=== PATIENT | female | born 1950 | race Caucasian/White ===

== ENCOUNTER 2016-08-04 08:40 | Day surgery (SDC) | payer OTHER ==
[~2016-08-04 08:40] MED LIST: Lactated Ringers 1,000 ML IV SCH; Lidocaine 1%/Sod Bicarbonate in NS 8.4% 1 ML Syringe IV PRN; Sodium Chloride 0.9% 10 ML Syringe FLUSH PRN
[2016-08-04] MEDS ORDERED: Propofol 200 MG/20 ML SDV ONE (09:44)
[2016-08-04] MEDS ORDERED: Lidocaine 1% 4 ML ONE (09:45)
[2016-08-04] MEDS ORDERED: Rocuronium 50 MG/5 ML Vial ONE (09:53)
[2016-08-04] MEDS ORDERED: Bupivacaine 0.25% 30 ML SDV ONE (09:58)
[2016-08-04] MEDS ORDERED: EPINEPHrine 1:1000 1 MG/ML 30 ML MDV ONE (09:58)
[2016-08-04] MEDS ORDERED: EPINEPHrine 1:1000 1 MG/ML SDV ONE (10:19)
[2016-08-04] MEDS ORDERED: Ropivacaine 0.5% 5 MG/ML 30 ML SDV ONE (10:19)
[2016-08-04] MEDS ORDERED: Midazolam 1 MG/ML 2 ML SDV ONE (10:25)
[2016-08-04] MEDS ORDERED: fentaNYL 100 MCG/2 ML SDV ONE ×2 (10:25→11:43)
--- NOTE | 2016-08-04 10:30 | PCM.PREANE ---
<Nolvia Reynaga - Last Filed: 08/04/16 10:25> Preanesthetic Assessment - Procedure Proposed Procedure: Left should video arthroscopy, rotator cuff repair, subacromial decompression and AIP - Anesthesia/Transfusion/Family Hx Anesthesia History: Prior Anesthesia Reaction Type of Anesthesia Reaction: Excessive Nausea/Vomiting (20 years ago, vomiting 24 hours) Family History of Anesthesia Reaction: No Transfusion History: No Prior Transfusion(s) - Review of Systems General: No Symptoms Pulmonary: No Symptoms - Physical Assessment NPO Status Date: 08/03/16 NPO Status Time: 21:45 O2 Sat by Pulse Oximetry: 96 Respiratory Rate: 16 Vital Signs: Last Vital Signs Temp 36.0 C 08/04/16 08:55 Pulse 69 08/04/16 08:55 Resp 16 08/04/16 10:32 BP 153/89 H 08/04/16 08:55 Pulse Ox 96 08/04/16 10:32 Height: 1.61 m Weight: 64.41 kg - Lab Values: Laboratory Last Values MRSA (PCR) Negative 08/02/16 11:25 - Allergies Allergies/Adverse Reactions: Allergies Allergy/AdvReac Type Severity Reaction Status Date / Time cayenne Allergy Rash Verified 08/03/16 13:56 PreAnesthesia Questionnaire HEENT History: Reports: Impaired Vision, Other (See Below) Other HEENT History: Wears glasses Cardiovascular History: Reports: CAD, High Cholesterol, Hypertension Respiratory History: Reports: Other (See Below) Other Respiratory History: Short of breath with exertion Gastrointestinal History: Reports: None Genitourinary History: Reports: None 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: Musculoskeletal History: Reports: Other (See Below) Other Musculoskeletal History: Tear of left supraspinatus tendon, left biceps tendon rupture, tendonopathy of left shoulder Neurological History: Reports: None Psychiatric History: Reports: None Endocrine/Metabolic History: Reports: Hypothyroidism Hematologic History: Reports: None Immunologic History: Reports: None Oncologic (Cancer) History: Reports: None Dermatologic History: Reports: Eczema - Infectious Disease History Infectious Disease History: Reports: None - Past Surgical History Head Surgeries/Procedures: Reports: None HEENT Surgical History: Reports: Tonsillectomy Cardiovascular Surgical History: Reports: None Respiratory Surgical History: Reports: None GI Surgical History: Reports: Cholecystectomy Female Surgical History: Reports: None Endocrine Surgical History: Reports: None Neurological Surgical History: Reports: None Musculoskeletal Surgical History: Reports: None Oncologic Surgical History: Reports: None Dermatological Surgical History: Reports: None - SUBSTANCE USE Smoking Status *Q: Never Smoker Recreational Drug Use History: No - HOME MEDS Home Medications: Home Meds Aspirin [Halfprin] 81 mg PO DAILY 08/03/16 [History] Calcium Carbonate/Vitamin D3 [Calcium 600-Vit D3 800 Tab] 2 tab PO BID 08/03/16 [History] Iodine/Potassium Iodide [Lugol's Strong Iodine Solution] 2 drop PO DAILY [History] Vitamin E 400 unit PO DAILY 08/03/16 [History] Cyclobenzaprine [Flexeril] 10 mg PO Q8H PRN #40 tablet 08/04/16 [Rx] Hydrocodone/Acetaminophen [Squires 5-325 Tablet] 1 - 2 each PO Q6H PRN #40 tablet 08/04/16 [Rx] - CURRENT (IN HOUSE) MEDS Current Meds: Current Medications Lactated Ringer's (Ringers, Lactated) 1,000 mls @ 125 mls/hr IV ASDIRECTED VASYL Stop: 08/04/16 23:00 Last Admin: 08/04/16 09:10 Dose: 125 mls/hr Lidocaine/Sodium Bicarbonate (Buffered Lidocaine 1% In Ns 8.4%) 0.25 ml IV ONETIME PRN PRN Reason: Prior to IV Start Stop: 08/04/16 18:00 Last Admin: 08/04/16 09:10 Dose: 0.25 ml Sodium Chloride (Saline Flush) 10 ml FLUSH ASDIRECTED PRN PRN Reason: Keep Vein Open Stop: 08/04/16 18:00 Discontinued Medications Bupivacaine HCl (Marcaine 0.25%) Confirm Administered Dose 30 ml .ROUTE .STK- MED ONE Stop: 08/04/16 09:59 Epinephrine HCl (Adrenalin 1:1000) Confirm Administered Dose 30 mg .ROUTE .STK- MED ONE Stop: 08/04/16 09:59 Epinephrine HCl (Adrenalin 1:1000) Confirm Administered Dose 1 mg .ROUTE .STK- MED ONE Stop: 08/04/16 10:20 Fentanyl (Sublimaze) Confirm Administered Dose 100 mcg .ROUTE .STK-MED ONE Stop: 08/04/16 10:26 Lidocaine HCl (Xylocaine-Mpf 1%) Confirm Administered Dose 4 mls @ as directed .ROUTE .STK-MED ONE Stop: 08/04/16 09:46 Lidocaine HCl (Xylocaine-Mpf 1%) Confirm Administered Dose 2 mls @ as directed .ROUTE .STK-MED ONE Stop: 08/04/16 10:45 Midazolam HCl (Versed 1 Mg/Ml) Confirm Administered Dose 2 mg .ROUTE .STK-MED ONE Stop: 08/04/16 10:26 Propofol (Diprivan 20 Ml) Confirm Administered Dose 200 mg .ROUTE .STK-MED ONE Stop: 08/04/16 09:45 Rocuronium Channing (Zemuron) Confirm Administered Dose 50 mg .ROUTE .STK-MED ONE Stop: 08/04/16 09:54 Ropivacaine (Naropin 0.5%) Confirm Administered Dose 30 ml .ROUTE .STK-MED ONE Stop: 08/04/16 10:20 <Mahsa Hartmann - Last Filed: 08/04/16 10:42> Preanesthetic Assessment - Review of Systems Cardiovascular: Other (CAD, HTN, high cholesterol) Gastrointestinal: No symptoms Neurological: Tingling (In left hand) Other: Reports: Thyroid Problems (Hypothyroidism) - Physical Assessment Pulse: 69 Blood Pressure: 153/89 Temperature: 36.0 C ASA Class: 2 Mental Status: Alert & Oriented x3 Dentition: Reports: Normal Dentition Thyro-Mental Finger Breadths: 3 Mouth Opening Finger Breadths: 3 ROM/Head Extension: Full Lungs: Clear to auscultation, Normal respiratory effort Cardiovascular: Regular Rate, Regular Rhythm, No Murmurs - Lab Values: Laboratory Last Values MRSA (PCR) Negative 08/02/16 11:25 Lab values noted and ok to proceed - Acknowledgements Anesthesia Type Planned: General Anesthesia Pt an Appropriate Candidate for the Planned Anesthesia: Yes Alternatives and Risks of Anesthesia Discussed w Pt/Guardian: Yes Pt/Guardian Understands and Agrees with Anesthesia Plan: Yes PreAnesthesia Questionnaire - SUBSTANCE USE Smoking Status *Q: Never Smoker Days Per Week of Alcohol Use: 0 Number of Drinks Per Day: 0 Total Drinks Per Week: 0
[2016-08-04] MEDS ORDERED: Scopolamine 1.5 MG Transdermal Patch TRDERM ONE (10:33)
[2016-08-04] MEDS ORDERED: Lidocaine 1% 2 ML ONE (10:44)
[2016-08-04] MEDS ORDERED: ceFAZolin 1 GM Vial ONE (10:53)
--- NOTE | 2016-08-04 11:24 | PCM.SN ---
- Free Text/Narrative Note: Note: 08/04/2016 1119 121/82 67 98% 16 Surgeon and pt request post-op pain control for left shoulder surgery risk of block failure, facial numbness, site infection, and chronic pain discussed with pt and agreed to proceed. All standard monitors est. EKG, BP, Pulse Ox, 2L O2, and 2ml versed, 2ml fentanyl pre-op dx. left shoulder pain post-op dx left shoulder arthroscopy pt for interscalene block placement all standard monitors est. pt ID time out performed IV sedation 2ml versed, 2ml fentanyl, 2L NC O2, sterile prep and drape of left neck and shoulder U/S placed with visualization of brachial plexus from clavicle to cricoid local skin infiltration 22ga. Stimplex A insulated needle visualized at brachial plexus nerve stimulator at .9 Makayla Amps stop at .4 Makayla Amps with good bicep twitch with 1ml NaCl and lose of twitch neg aspirations every 5ml of 0.5% ropivacaine and 1:200,000 epi total of 30ml injected all done with U/S guidance needle withdrawn no complications noted pt tolerated procedure well block settling in start procedure at 1050 end procedure at 1107 124/80 78 98% 13
[2016-08-04] MEDS ORDERED: Phenylephrine/Normal Saline 100 MCG/ML 10 ML Syringe ONE (12:01)
[2016-08-04] MEDS ORDERED: Lactated Ringers 1,000 ML ONE ×2 (12:05→12:30)
[2016-08-04] MEDS ORDERED: Ondansetron 4 MG/2 ML SDV ONE (12:36)
[2016-08-04] MEDS ORDERED: Dexamethasone 4 MG/ML 5 ML MDV ONE (12:36)
[2016-08-04] MEDS ORDERED: Ketamine 500 mg/10 ML MDV ONE (12:39)
[2016-08-04] MEDS ORDERED: Neostigmine Methylsulfate 1 MG/ML 5 ML Syringe ONE (12:57)
[2016-08-04] MEDS ORDERED: Esmolol 100 MG/10 ML SDV ONE (13:09)
[2016-08-04] MEDS ORDERED: diphenhydrAMINE 50 MG/ML SDV IVPUSH PRN (13:22)
[2016-08-04] MEDS ORDERED: fentaNYL 100 MCG/2 ML SDV IVPUSH PRN (13:22)
[2016-08-04] MEDS ORDERED: Ondansetron 4 MG/2 ML SDV IVPUSH PRN (13:22)
--- NOTE | 2016-08-04 13:22 | PCM.POSTAN ---
POST ANESTHESIA ASSESSMENT - MENTAL STATUS Mental Status: somnolent, other (drowsy, arousable ) - VITAL SIGNS Pulse Rate: 93 SaO2: 97 Resp Rate: 17 Blood Pressure: 157/91 Temperature: 36.1 C - RESPIRATORY Respiratory Status: respiratory rate WNL, airway patent, O2 saturation stable - CARDIOVASCULAR CV Status: pulse rate WNL, blood pressure stable - PAIN Pain Score: 0 (does not respond with a number when asked at this point, will continue to monitor ) - POST OP HYDRATION Hydration Status: adequate & stable
[2016-08-04] MEDS ORDERED: Meperidine PF 50 MG/ML Syringe IVPUSH PRN (14:30)
--- NOTE | 2016-08-04 15:37 | PCM48HPAN ---
Post Anesthesia Note - EVALUATION WITHIN 48HRS OF ANESTHETIC Vital Signs in Normal Range: Yes Patient Participated in Evaluation: Yes Respiratory Function Stable: Yes Airway Patent: Yes Cardiovascular Function Stable: Yes Hydration Status Stable: Yes Pain Control Satisfactory: Yes Nausea and Vomiting Control Satisfactory: Yes Mental Status Recovered: Yes
[2016-08-04 16:13] VITALS: BP 121/70
--- NOTE | 2016-08-10 08:56 | PCM.OPNOTE ---
- General Post-Op/Procedure Note Date of Surgery/Procedure: 08/04/16 Operative Procedure(s): left shoulder video arthroscopy with massive rotator cuff repair and subacromial decompression Pre Op Diagnosis: rotator cuff tear with impingement Post-Op Diagnosis: Same Anesthesia Technique: General ET tube, Regional block Primary Surgeon: Pedro Pritchett Anesthesia Provider: Nolvia Reynaga Break Up Worker: Vashti Goff EBL in mLs: 5 Complications: None Condition: Good
--- NOTE | 2016-08-10 11:01 | OR ---
DATE OF OPERATION: 08/04/2016 SURGEON: Pedro Pritchett MD OPERATIVE PROCEDURE: Left shoulder video arthroscopy with massive rotator cuff repair and subacromial decompression. PREOPERATIVE DIAGNOSIS: Rotator cuff tear with impingement. POSTOPERATIVE DIAGNOSIS: Rotator cuff tear with impingement. ANESTHESIA: General endotracheal intubation with regional block. ANESTHESIA PROVIDER: Sergey Valentin. POLYETHYLENE COMBINER: Vashti Goff PA-C. ESTIMATED BLOOD LOSS: Less than 5 mL. COMPLICATIONS: None. CONDITION: Stable. DESCRIPTION OF PROCEDURE: The patient was identified in the preoperative holding area and proper site was marked and identified by the surgeon. The patient was taken back to the operating theater, where after adequate anesthesia, the patient was placed in the lazy right lateral decubitus position. A wedge was placed posteriorly. All bony prominences were well padded. At this time, the left upper extremity was then sterilely prepped and draped in the usual sterile fashion. OR time-out was performed. The patient received 2 g IV Ancef. A 12 pounds of traction was applied to the left upper extremity. Standard incision was made posteriorly, scope trocar was introduced to glenohumeral joint from posteriorly with the use of a spinal needle outside, and an anterior portal was then created. At this time, the glenohumeral joint was visualized. There were no signs of chondromalacia. The biceps tendon was found already to be ruptured. There was noted to be a massive rotator cuff tear, both at the supra and infraspinatus. At this time, the scope was placed in the subacromial space. A limited bursectomy was carried out. A good bony bleeding bed was then created on the old footprint and there was good mobilization of the tendon. At this time, one 4.75-mm Arthrex SwiveLock anchor, triple loaded was placed medially to limb, a 4 limbs of FiberWire and 2 limbs of FiberTape were then placed from anterior to posterior. The 4 limbs of FiberWire were then tied cutting 1 limb of each. Next, the 4 limbs including the 2 limbs of FiberTape were brought out laterally for another 4.75 mm Arthrex SwiveLock anchor. This was placed laterally for a double-row repair and it was found to be water tight. At this time, a subacromial decompression was completed on the type 2/3 acromion back to a good smooth border. At this time, excess saline was drained from the shoulder. A 3- 0 nylon simple suture was used for closure of the skin. Sterile soft dressing was applied along with a pillow sling. The patient tolerated the procedure well and sent to PACU in stable condition. OPERATION PERFORMED: MMODAL /[id number]
== END 2016-08-04 16:00 | disposition home or self-care (01) ==
LOC: JD.SDS 08:40
PROVIDERS: ATTEND Orthopaedic Surgery
DX: M75.102 Unspecified rotator cuff tear or rupture of left shoulder, not specified as traumatic (principal); I25.10 Atherosclerotic heart disease of native coronary artery without angina pectoris; E78.1 Pure hyperglyceridemia; I10 Essential (primary) hypertension; E78.00 Pure hypercholesterolemia, unspecified; Z98.890 Other specified postprocedural states; Z88.8 Allergy status to other drugs, medicaments and biological substances; Z79.899 Other long term (current) drug therapy
CPT/HCPCS: 29826; 29827; 87641; 93005; A9270; C1713; J0171; J0690; J1100; J2405; J2710; J2795; J3010; J7120; 01630; 64415; J2704; J3490